=== PATIENT | male | born 1980 | race Two or more races ===

== ENCOUNTER 2019-01-07 23:56 | Emergency (ER) | payer MEDICAID ==
[~2019-01-07] VITALS: Ht 182.9 cm; Wt 90.7 kg
[2019-01-08 00:22] VITALS: BP 132/89
[2019-01-08 00:45] LABS: Basophils # (auto) 0 uL; Basophils % (auto) 0.4 % (0.0-2.0); Eosinophils # (auto) 0.2 uL; Hematocrit 43.2 % (41.0-53.0); Hemoglobin 15.2 g/dL (13.5-17.5); Lymphocytes # (auto) 1.7 uL; Lymphocytes % (auto) 24.6 % (10.0-50.0); Mean Corpuscular Hemoglobin 35.4 pg (28.0-32.0); Mean Corpuscular Hgb Conc. 35.3 g/dL (32.0-36.0); Mean Corpuscular Volume 100.4 fL (80.0-100.0); Monocytes # (auto) 0.6 uL; Neutrophils # (auto) 4.3 uL; Nucleated Red Blood Cells % 0.1 %; Platelet Count (auto) 120 10^3/uL (140-450); Red Cell Distribution Width 13.6 % (11.8-14.3); White Blood Cell 6.8 10^3/uL (4.4-10.8)
[2019-01-08 01:03] LABS: Albumin 3.9 g/dL (3.4-5.0); Anion Gap 10 (5-15); BUN/Creatinine Ratio 15.6; Blood Urea Nitrogen 15 mg/dL (7-18); Calcium 8.9 mg/dL (8.5-10.1); Carbon Dioxide 25 mmol/L (21-32); Chloride 107 mmol/L (98-107); GFR African American 114 mL/min; GFR Non-African American 94 mL/min; Glucose 163 mg/dL (74-106); Magnesium 2.4 mg/dL (1.6-2.6); Potassium 3.6 mmol/L (3.5-5.1); Sodium 142 mmol/L (136-145)
[2019-01-08 01:08] LABS: Alanine Aminotransferase 146 U/L (16-61); Alkaline Phosphatase 146 U/L (45-117); Aspartate Aminotransferase 110 U/L (15-37); Bilirubin, Total 0.9 mg/dL (0.2-1.0); Total Protein 7.8 g/dL (6.4-8.2)
[2019-01-08 01:28] LABS: INR 0.98 (0.9-1.15); Partial Thromboplastin Time 27.6 sec (23.64-32.05)
== END 2019-01-08 03:42 | disposition left against medical advice (07) ==
LOC: ER 01-08 00:03
DX: R07.9 Chest pain, unspecified (principal); Z53.21 Procedure and treatment not carried out due to patient leaving prior to being seen by health care provider
CPT/HCPCS: 36415; 71045; 80053; 83735; 83880; 84443; 84484; 85025; 85610; 85730; 93005

== ENCOUNTER 2020-08-10 20:57 | Inpatient (IN) | payer MEDICAID ==
[~2020-08-10] VITALS: Ht 167.6 cm; Wt 89.5 kg
[2020-08-10] MEDS ORDERED: SODIUM CHLORIDE 0.9% 1,000 ML IV ONE (22:15)
[2020-08-10 22:25] LABS: Basophils # (auto) 0 10 ^3/uL (0-0.2); Eosinophils # (auto) 0.1 10 ^3/uL (0-0.8); Monocytes # (auto) 0.5 10 ^3/uL (0-1.3)
[2020-08-10 22:44] LABS: Potassium 4.4 mmol/L (3.5-5.1)
[2020-08-10 22:50] LABS: Albumin 3.8 g/dL (3.4-5.0); Bilirubin, Total 1.6 mg/dL (0.2-1.0)
[2020-08-10 22:53] LABS: Basophils % (auto) 1.3 % (0.0-2.0); Eosinophils % (auto) 1.8 % (0.0-7.0); Lymphocytes % (auto) 25.9 % (10.0-50.0); Neutrophils # (auto) 2.3 10 ^3/uL (1.6-8.6); Nucleated Red Blood Cells % 0.7 %; Platelet Count (auto) 106 10^3/uL (140-450); Red Cell Distribution Width 14.5 % (11.8-14.3)
[2020-08-10 23:18] LABS: Hematocrit 41.8 % (41.0-53.0); Hemoglobin 14.8 g/dL (13.5-17.5); Mean Corpuscular Hemoglobin 35.6 pg (28.0-32.0); Mean Corpuscular Hgb Conc. 35.3 g/dL (32.0-36.0); Mean Corpuscular Volume 100.9 fL (80.0-100.0)
[2020-08-10 23:19] LABS: Red Blood Cells 4.14 10^6/uL (4.5-5.90); Total Protein 7.7 g/dL (6.4-8.2)
[2020-08-10 23:23] LABS: Magnesium 2.6 mg/dL (1.6-2.6); Phosphorus 4.2 mg/dL (2.5-4.90)
[2020-08-10 23:32] LABS: BUN/Creatinine Ratio 18.8
[2020-08-10 23:35] LABS: Urine Bacteria FEW /hpf (None Seen); Urine Blood Negative /uL (Negative); Urine Specific Gravity 1.026 (1.001-1.035); Urine WBC 2 /hpf (0 - 3)
[2020-08-10] MEDS ORDERED: InsuLIN REG 1unit/0.01ml Soln (100units/ml) IV ONE (23:45)
[2020-08-11] MEDS ORDERED: ONDANSETRON HCL 4 MG/2 ML VIAL IV PRN (01:00)
[2020-08-11] MEDS ORDERED: SODIUM CHLORIDE 0.9% 1,000 ML IV ONE (01:00)
[2020-08-11] MEDS ORDERED: DEXTROSE (50%) 50ML SYRG IV PRN ×2 (01:00→13:00)
[2020-08-11] MEDS: ACCU-CHEK COMFORT CURVE STRIP VI SCH ×6 (04:02→23:52)
[2020-08-11] MEDS: InsuLIN REG 1unit/0.01ml Soln (100units/ml) SC SCH ×6 (04:03→23:52)
[2020-08-11] MEDS ORDERED: SOD CHL 0.9%/ KCL 20MEQ 1,000 ML IV ONE ×2 (04:45→12:00)
[2020-08-11 08:21] VITALS: BP 126/70
[2020-08-11] MEDS: FAMOTIDINE 20 MG TAB PO SCH ×2 (09:17→21:32)
[2020-08-11 12:00] VITALS: BP 118/83
[2020-08-11 16:00] VITALS: BP 123/71
[2020-08-11] MEDS: INSULIN LANTUS (GLARGINE) 1 /0.01ml (100units/ml) SC SCH (21:32)
[2020-08-11 22:02] VITALS: BP 127/67
[2020-08-12] MEDS: InsuLIN REG 1unit/0.01ml Soln (100units/ml) SC SCH ×5 (03:40→20:00)
[2020-08-12] MEDS: ACCU-CHEK COMFORT CURVE STRIP VI SCH ×5 (03:40→19:55)
[2020-08-12 05:06] VITALS: BP 117/84
[2020-08-12 06:03] LABS: Basophils # (auto) 0 10 ^3/uL (0-0.2); Basophils % (auto) 0.7 % (0.0-2.0); Eosinophils # (auto) 0.1 10 ^3/uL (0-0.8); Monocytes # (auto) 0.5 10 ^3/uL (0-1.3); Neutrophils # (auto) 2.2 10 ^3/uL (1.6-8.6); Nucleated Red Blood Cells % 0.2 %
[2020-08-12 06:06] LABS: Eosinophils % (auto) 2.5 % (0.0-7.0); Lymphocytes # (auto) 1.3 10 ^3/uL (0.4-5.4); Lymphocytes % (auto) 32.2 % (10.0-50.0); Monocytes % (auto) 12.6 % (0.0-12.0)
[2020-08-12 06:20] LABS: Albumin 3.3 g/dL (3.4-5.0); Calcium 8.8 mg/dL (8.5-10.1)
[2020-08-12 06:25] LABS: BUN/Creatinine Ratio 19.6; Total Protein 6.7 g/dL (6.4-8.2)
[2020-08-12 06:28] LABS: Potassium 2.9 mmol/L (3.5-5.1)
[2020-08-12 06:42] LABS: Hematocrit 41.5 % (41.0-53.0); Mean Corpuscular Hgb Conc. 36.1 g/dL (32.0-36.0); Mean Corpuscular Volume 99.8 fL (80.0-100.0); Red Blood Cells 4.16 10^6/uL (4.5-5.90); Red Cell Distribution Width 14.5 % (11.8-14.3); White Blood Cell 4.2 10^3/uL (4.4-10.8)
[2020-08-12 06:47] LABS: Platelet Count (auto) 85 10^3/uL (140-450)
[2020-08-12] MEDS ORDERED: POTASSIUM CHL 20 Meq TABLET PO ONE (07:30)
[2020-08-12 08:10] VITALS: BP 120/70
[2020-08-12 08:55] VITALS: BP 120/70
[2020-08-12] MEDS: FAMOTIDINE 20 MG TAB PO SCH ×2 (09:08→21:00)
[2020-08-12 12:00] VITALS: BP 121/72
[2020-08-12 16:38] VITALS: BP 116/88
[2020-08-12] MEDS: POTASSIUM CHL 20 Meq TABLET PO SCH (21:00)
[2020-08-12] MEDS: INSULIN LANTUS (GLARGINE) 1 /0.01ml (100units/ml) SC SCH (21:03)
[2020-08-12 22:00] VITALS: BP 112/71
[2020-08-13] MEDS: ACCU-CHEK COMFORT CURVE STRIP VI SCH ×5 (00:03→15:29)
[2020-08-13] MEDS: InsuLIN REG 1unit/0.01ml Soln (100units/ml) SC SCH ×5 (00:06→15:54)
[2020-08-13 04:57] VITALS: BP 110/51
[2020-08-13] MEDS: POTASSIUM CHL 20 Meq TABLET PO SCH (08:45)
[2020-08-13] MEDS: FAMOTIDINE 20 MG TAB PO SCH (08:45)
[2020-08-13 09:00] VITALS: BP 112/72
[2020-08-13 12:30] VITALS: BP 143/75
[2020-08-13 13:25] VITALS: BP 126/62
[2020-08-13 15:19] LABS: Hepatitis A Ab IgM Negative; Hepatitis B Core IgM Negative; Hepatitis B Surface Antigen Negative (Negative); Hepatitis C Antibody Negative (Negative)
== END 2020-08-13 15:39 | disposition home or self-care (01) | DRG 420 ==
LOC: ER 20:58 → OVERFLOW 08-11 00:48 → WEST WING 08-11 08:15
PROVIDERS: ADMIT Nurse Practitioner; ATTEND Family Medicine
DX: E11.10 Type 2 diabetes mellitus with ketoacidosis without coma (principal); E86.0 Dehydration; E87.6 Hypokalemia; Z20.822 Contact with and (suspected) exposure to COVID-19; R74.01 Elevation of levels of liver transaminase levels; Z83.3 Family history of diabetes mellitus
CPT/HCPCS: 36415; 36600; 76705; 80053; 80074; 81001; 82010; 82805; 82962; 83036; 83605; 83735; 84100; 84132; 85025; 87426; 93005; 96361; 96372; 96374; G0378; J1815

== ENCOUNTER 2021-04-02 17:19 | Emergency (ER) | payer MEDICAID ==
[~2021-04-02] VITALS: Ht 170.2 cm; Wt 90.7 kg
[2021-04-02] MEDS ORDERED: SODIUM CHLORIDE 0.9% 1,000 ML IV ONE (21:30)
[2021-04-02] MEDS ORDERED: ASPirin 81 mg TAB PO ONE (21:30)
[2021-04-02] MEDS ORDERED: ALBUTEROL SULF HFA 90MCG INH 200DOSE IN PRN (23:15)
[2021-04-02] MEDS ORDERED: HYDROcodone-ACET 5/325MG TAB PO ONE (23:15)
[2021-04-02] MEDS ORDERED: ACETAMINOPHEN 500 MG TAB PO PRN (23:15)
[2021-04-02] MEDS ORDERED: ACETAMINOPHEN 325 MG TAB PO ONE (23:15)
[2021-04-02] MEDS ORDERED: cefTRIAXone 1GM/50ML D5W 50 ML IV ONE (23:15)
[2021-04-02] MEDS ORDERED: AZITHROMYCIN 500MG/ 250ML 250 ML IV ONE (23:15)
[2021-04-02] MEDS ORDERED: DexAMETHasone SOD PHOS 10MG/1ML VIAL INJ IV SCH (23:30)
[2021-04-02 23:33] LABS: Basophils # (auto) 0.1 10 ^3/uL (0-0.2); Basophils % (auto) 1.1 % (0.0-2.0); Eosinophils # (auto) 0 10 ^3/uL (0-0.8); Eosinophils % (auto) 0.1 % (0.0-7.0); Hematocrit 39.6 % (41.0-53.0); Lymphocytes # (auto) 1.6 10 ^3/uL (0.4-5.4); Lymphocytes % (auto) 25.9 % (10.0-50.0); Mean Corpuscular Hemoglobin 33.6 pg (28.0-32.0); Mean Corpuscular Hgb Conc. 35.5 g/dL (32.0-36.0); Mean Corpuscular Volume 94.8 fL (80.0-100.0); Monocytes # (auto) 0.7 10 ^3/uL (0-1.3); Monocytes % (auto) 11.4 % (0.0-12.0); Neutrophils # (auto) 3.8 10 ^3/uL (1.6-8.6); Neutrophils % (auto) 61.5 % (37.0-80.0); Nucleated Red Blood Cells % 0.3 %; Red Blood Cells 4.18 10^6/uL (4.5-5.90); Red Cell Distribution Width 13.4 % (11.8-14.3); White Blood Cell 6.2 10^3/uL (4.4-10.8)
[2021-04-02 23:53] LABS: Albumin 3.7 g/dL (3.4-5.0); Magnesium 2.6 mg/dL (1.6-2.6); Potassium 4.2 mmol/L (3.5-5.1)
[2021-04-03 00:01] LABS: BUN/Creatinine Ratio 15.5; Bilirubin, Total 2.1 mg/dL (0.2-1.0); CRP High Sensitivity 6.27 mg/dL (< 0.3); Total Protein 7.9 g/dL (6.4-8.2)
[2021-04-03 00:50] VITALS: BP 120/79
[2021-04-03] MEDS ORDERED: ASCORBIC ACID 1,000 MG TAB PO SCH (10:00)
[2021-04-03] MEDS ORDERED: CHOLECALCIFEROL (VITD3) 2,000 UNIT CAP/TAB PO SCH (10:00)
[2021-04-03] MEDS ORDERED: ZINC SULFATE 220mg CAP or TAB PO SCH (10:00)
[2021-04-03] MEDS ORDERED: ENOXAPARIN SOD 40 MG/0.4 ML SYRINGE SC SCH (10:00)
[2021-04-03] MEDS ORDERED: cefTRIAXone 1GM/50ML D5W 50 ML IV SCH (22:00)
[2021-04-03] MEDS ORDERED: AZITHROMYCIN 500MG/ 250ML 250 ML IV SCH (22:00)
== END 2021-04-03 03:08 | disposition home or self-care (01) ==
LOC: ER 17:19
DX: U07.1 COVID-19 (principal); J12.82 Pneumonia due to coronavirus disease 2019; R50.9 Fever, unspecified; R74.8 Abnormal levels of other serum enzymes; E11.9 Type 2 diabetes mellitus without complications
CPT/HCPCS: 36415; 71045; 80053; 82728; 83605; 83735; 84484; 85025; 85379; 86141; 87426; 93005; 96365; 96366; 96368; 96375; 99285; J0456; J0696; J1100; J7030

== ENCOUNTER 2021-12-04 16:36 | Emergency (ER) | payer MEDICAID ==
[2021-12-04 16:46] VITALS: BP 136/82
== END 2021-12-05 06:30 | disposition left against medical advice (07) ==
LOC: ER 16:36
DX: R05.9 Cough, unspecified (principal); J02.9 Acute pharyngitis, unspecified; Z53.21 Procedure and treatment not carried out due to patient leaving prior to being seen by health care provider